=== PATIENT | male | born 1950 | race Caucasian/White ===

== ENCOUNTER 2017-12-23 10:58 | Day surgery (SDC) | payer MEDICARE, OTHER ==
[2017-12-20 11:23] VITALS: BMI 52.3
[~2017-12-23 10:58] MED LIST: ALPRAZolam 0.25 MG TAB PO PRN; ALPRAZolam 0.5 MG TAB PO PRN; ASPIRIN 325 MG TAB PO STA; ATORVASTATIN 80 MG TAB PO STA; NITROGLYCERIN SL TABS 0.4 MG TAB SUBLINGUAL PRN; SODIUM CHLORIDE 0.9% 1,000 ML in EMPTY BAG 1 BAG IV ONE
[2017-12-23 11:27] VITALS: TEMP 98
[2017-12-23] MEDS ORDERED: VERAPAMIL 2.5 MG/ML 2 ML AMP ONE (11:31)
[2017-12-23] MEDS ORDERED: LIDOCAINE 1% INJ 10MG/ML (20 ML MDV) ONE (11:31)
[2017-12-23] MEDS ORDERED: HEPARIN SODIUM 1,000 UN/ML (10ML VL) ONE (11:31)
[2017-12-23] MEDS ORDERED: MIDAZOLAM 2 MG/2 ML VIAL ONE (11:31)
[2017-12-23 11:34] LABS: Glucose,Whole Blood 127 mg/dL (75-99)
[2017-12-23] MEDS ORDERED: SODIUM CHLORIDE 0.9% 1,000 ML IV ONE (11:38)
[2017-12-23 11:40] LABS: Basophils # (A) 0.1 k/uL (0-0.2); Basophils % (A) 0 %; Eosinophils # (A) 0.1 k/uL (0-0.7); Eosinophils % (A) 1 %; HCT 39.8 % (39.0-53.0); HGB 12.5 gm/dL (13.0-17.5); Lymphocytes # (A) 2.3 k/uL (1.0-4.8); Lymphocytes % (A) 20 %; MCH 24.9 pg (25.0-35.0); MCHC 31.5 g/dL (31.0-37.0); MCV 79.2 fL (80.0-100.0); Mean Platelet Volume 6.7; Monocytes # (A) 0.6 k/uL (0-1.0); Monocytes % (A) 5 %; Neutrophils # (A) 8.1 k/uL (1.3-7.7); Neutrophils % (A) 72 %; Platelet Count 249 k/uL (150-450); RBC 5.02 m/uL (4.30-5.90); RDW 14.6 % (11.5-15.5); WBC 11.2 k/uL (3.8-10.6)
[2017-12-23] MEDS ORDERED: MIDAZOLAM 2 MG/2 ML VIAL IV ONE (11:55)
[2017-12-23] MEDS ORDERED: LIDOCAINE 1% INJ 10MG/ML (20 ML MDV) SQ ONE ×2 (12:00)
[2017-12-23] MEDS ORDERED: IOPAMIDOL-370 125ML BTL INJ ONE (12:25)
[2017-12-23] MEDS ORDERED: IOPAMIDOL-370 50ML BTL INJ ONE (12:41)
[2017-12-23] MEDS ORDERED: IOPAMIDOL-370 100ML BTL INJ ONE (12:43)
[2017-12-23] MEDS ORDERED: RX INFO: IV CONTRAST WAS GIVEN 1 EACH MISC MISCELLANE PRN (12:52)
[2017-12-23] MEDS ORDERED: SODIUM CHLORIDE 0.9% 1,000 ML IV SCH (13:00)
[2017-12-23 14:52] LABS: Glucose,Whole Blood 161 mg/dL (75-99)
[2017-12-23 15:09] VITALS: RESP 16
[2017-12-23 17:44] VITALS: BP 117/65; PULSE 66
--- NOTE | 2017-12-23 17:53 | CC ---
CARDIAC CATHETERIZATION REPORT DATE OF SERVICE: December 23, 2017 PERFORMING PHYSICIAN: Nikolay Harris MD, talent acquisition associate. PROCEDURE PERFORMED: 1. Selective left and right coronary angiogram. 2. SVG to left circumflex angiogram. 3. SVG to RCA angiogram. 4. Left internal mammary artery angiogram. 5. Left heart catheterization. 6. Aortic root angiogram. INDICATION: This is a pleasant 67-year-old gentleman who is known to have history of coronary artery disease and prior coronary artery bypass grafting where he received EDEN to LAD, SVG to OM, SVG to diagonal and SVG to RCA, was experiencing symptoms of fatigue and tiredness, and he underwent a myocardial perfusion imaging stress test and that showed anterior ischemia. Because of that, a heart catheterization was advised. APPROACH: Right common femoral artery. COMPLICATION: None. LEVEL OF SEDATION: Moderate with sedation length of 44 minutes. PROCEDURE DESCRIPTION: After obtaining an informed consent, the patient was brought to cardiac construction or leak gang laborer. The right common femoral artery was cannulated using micropuncture technique, the micropuncture wire passed easily, then I placed a 6-Wolof sheath in the right common femoral artery. I did selective left and right coronary angiogram using JL4 and JR4 catheters. SVG to OM angiogram was performed using JR4 catheter. SVG to RCA angiogram was performed using JR4 catheter as well. The left internal mammary artery angiogram was performed using an IM catheter. I did after that aortic root angiogram, trying to find out the SVG to diagonal, which was not visualized. Then I did left heart catheterization using 6-Wolof pigtail catheter. The procedure was completed without any complication. SELECTIVE CORONARY ANGIOGRAM: 1. The left main has disease appeared to be in the range of 50%. Disease involving the ostial left circumflex as well as the LAD. 2. The ostial left circumflex appeared to have a lesion in the range of 50%. It gives rise into multiple small obtuse marginal branches. The left circumflex after that continues as a moderate caliber vessel in the AV groove. 3. The LAD: The proximal LAD appeared to have mild to moderate disease only. The mid LAD has a long tubular lesion in the range of 80-90%. The LAD gives rise into a diagonal branch which appeared to have mild disease only. 4. The RCA is 100% occluded in the midportion. CORONARY BYPASS ANGIOGRAM: 1. SVG to RCA is patent. 2. The SVG to OM is patent with ostial disease appeared to be in the range of 40-50% only. 3. The SVG to diagonal was not well visualized. 4. The EDEN to LAD is patent. HEMODYNAMICS: The left ventricular end-diastolic pressure was 12 mmHg and no significant gradient was seen across the aortic valve. AORTIC ROOT ANGIOGRAM: The aortic root angiogram was performed in the KEYLA projection and using a power injection. I could not visualize the SVG to diagonal on the aortic root angiogram. CONCLUSION: 1. Severe triple-vessel coronary artery disease. 2. Patent EDEN to LAD. 3. Patent SVG to OM. 4. Patent SVG to RCA. 5. I could not visualize the SVG to diag, which is likely to be occluded. POSTPROCEDURE MANAGEMENT: 1. Medical treatment. 2. Follow up with the patient. MMODL / IJN: [id number] /
== END 2017-12-23 18:30 | disposition home or self-care (01) ==
LOC: CATHCVL 10:58 → 3OBS 12:43 → CATHCVL 18:30
PROVIDERS: ATTEND Internal Medicine Interventional Cardiology
DX: I25.110 Atherosclerotic heart disease of native coronary artery with unstable angina pectoris (principal); Z95.1 Presence of aortocoronary bypass graft; I10 Essential (primary) hypertension; E78.5 Hyperlipidemia, unspecified; E11.9 Type 2 diabetes mellitus without complications; R60.0 Localized edema; Z88.1 Allergy status to other antibiotic agents; Z88.0 Allergy status to penicillin; Z79.84 Long term (current) use of oral hypoglycemic drugs; Z79.82 Long term (current) use of aspirin; Z79.899 Other long term (current) drug therapy
CPT/HCPCS: 93459; 93567; 85025; C1894 ×2; C1769 ×2; C1760; J2250; J2001; Q9967 ×3